=== PATIENT | male | born 1950 | race Caucasian/White ===

== ENCOUNTER 2023-04-07 23:11 | Emergency (ER) | payer OTHER ==
[~2023-04-07] VITALS: Ht 180.3 cm; Wt 86.0 kg
[2023-04-08] MEDS ORDERED: PANTOPRAZOLE SODIUM 40 MG/VIAL IV ONE (00:15)
[2023-04-08] MEDS ORDERED: SODIUM CHLORIDE 0.9% 1,000 ML IV ONE (00:15)
[2023-04-08 00:44] LABS: CHLORIDE 101 mEq/L (98-107)
[2023-04-08 00:45] LABS: HEMOGLOBIN. 11.4 g/dL (14.0-18.0); MEAN CORPUSCULAR HEMOGLOBIN 25.4 pg (28.0-32.0); MEAN PLATELET VOLUME 6.8 fl (7.4-10.4); PLATELET 289 x1000/uL (130-400); RED CELL DISTRIBUTION WIDTH 17.4 % (11.6-14.6)
[2023-04-08 01:05] LABS: PLATELET ESTIMATE NORMAL
[2023-04-08 01:12] LABS: PARTIAL THROMBOPLASTIN TIME 27.9 sec (23.4-31.0); PROTHROMBIN TIME 10.9 sec (9.6-11.0)
[2023-04-08] MEDS ORDERED: IOHEXOL-300 100 ML BOTTLE ONE (02:56)
[2023-04-08 05:20] LABS: CLARITY URINE CLEAR (CLEAR); COLOR URINE YELLOW (YELLOW); KETONES URINE 1+ (NEGATIVE); LEUKOCYTE ESTERASE URINE NEGATIVE (NEGATIVE); NITRITE URINE NEGATIVE (NEGATIVE); OCCULT BLOOD URINE 2+ (NEGATIVE); PH URINE 6.5 (4.5-8.0); PROTEIN URINE TRACE (NEGATIVE); SPECIFIC GRAVITY URINE 1.022 (1.005-1.030); UROBILINOGEN URINE 0.2 E.U./dL (0.2-1.0)
[2023-04-08] MEDS ORDERED: AZIT500T8 MT (06:10)
[2023-04-08] MEDS ORDERED: LOPERAMIDE 2MG/15ML UDC PO ONE (06:30)
[2023-04-08] MEDS ORDERED: AZITHROMYCIN 500 MG TABLET PO ONE (06:30)
[2023-04-08] MEDS ORDERED: LOPERAMIDE HCL 1 MG/7.5 ML PO NR (06:45)
[2023-04-08] MEDS ORDERED: HYDROCODONE/ACETAMINOPHEN 5/325MG TABLET PO ONE (07:00)
[2023-04-08 08:00] VITALS: BP 145/91
== END 2023-04-08 08:14 | disposition home or self-care (01) ==
LOC: ER 23:11
DX: K62.89 Other specified diseases of anus and rectum (principal); R33.9 Retention of urine, unspecified; E78.00 Pure hypercholesterolemia, unspecified
CPT/HCPCS: 36415; 74177; 80053; 81003; 83605; 83690; 85025; 85610; 85730; 86850; 86900; 86901; 96361; 96374; 99285; C9113; J7030; Q9967; A4315